=== PATIENT | female | born 1960 | race Two or more races ===

== ENCOUNTER 2020-08-18 20:19 | Emergency (ER) | payer OTHER ==
[~2020-08-18] VITALS: Ht 157.5 cm; Wt 84.8 kg
[2020-08-18 20:35] VITALS: BP 130/63
--- NOTE | 2020-08-18 20:45 | NUR ---
SEEN AND EXAMINED BY TIA WITH ORDERS AND CARRIED OUT.
[2020-08-18] MEDS ORDERED: ACETAMINOPHEN 325 MG TAB PO ONE (20:50)
--- NOTE | 2020-08-18 21:10 | NUR ---
MEDICATED PER [facility] ORDER , TOLERATED WELL.
--- NOTE | 2020-08-18 21:10 | NUR ---
SWAB DONE FOR INFLUENZA, AND NOVEL SENT TO LAB
[2020-08-18] MEDS ORDERED: NACL 0.9% 1,000 ML IV ONE (22:10)
[2020-08-18 22:31] LABS: HEMATOCRIT 38.3 % (36-48); HEMOGLOBIN 12.3 g/dL (12.0-16.0); MEAN CORPUSCULAR HEMOGLOBIN 29 pg (27-31); MEAN CORPUSCULAR HGB CONC 32 g/dL (33-37); MEAN CORPUSCULAR VOLUME 90.7 fL (80-94); PLATELET COUNT (AUTO) 244 K/uL (140-450); RED BLOOD CELL COUNT(AUTO) 4.23 MIL/uL (4.20-5.40); RED CELL DISTRIBUTION WIDTH 12.5 % (11.6-13.7); WHITE BLOOD COUNT (AUTO) 15.3 K/uL (4.8-10.8)
[2020-08-18 22:54] LABS: ALBUMIN 3.2 g/dL (3.4-5.0); ANION GAP 14.1 (8-16); CARBON DIOXIDE 27.5 mmol/L (21-32); CREATININE 0.6 mg/dL (0.6-1.3); POTASSIUM 3.6 mmol/L (3.5-5.1); TOTAL BILIRUBIN 0.9 mg/dL (0.0-1.0)
[2020-08-18 23:34] VITALS: BP 125/65
--- NOTE | 2020-08-18 23:40 | NUR ---
urine sample collected.
[2020-08-18] MEDS ORDERED: CEFEPIME 1,000 MG VIAL ONE (23:44)
[2020-08-18] MEDS ORDERED: CEFEPIME 1,000 MG in DEXTROSE 5% 50 ML IV ONE (23:45)
[2020-08-19 02:04] LABS: APPEARANCE,URINE CLEAR (CLEAR); BILIRUBIN,URINE 1+ (NEGATIVE); BLOOD, URINE 3+ (NEGATIVE); COLOR,URINE YELLOW (YELLOW); LEUKOCYTE ESTERASE ,URINE 3+ (NEGATIVE); NITRITE, URINE NEGATIVE (NEGATIVE); UGLUCOSE NEGATIVE (NEGATIVE)
[2020-08-19 02:47] LABS: WBC,URINE 80-100 /HPF (0-5)
[2020-08-19 02:48] LABS: RBC,URINE 11-20 (MOD) /HPF (0-5)
--- NOTE | 2020-08-19 03:12 | NUR ---
Patient discharged with v/s stable. Written and verbal after care instructions given and explained. Patient alert, oriented and verbalized understanding of instructions. Ambulatory with steady gait. All questions addressed prior to discharge. ID band removed. Patient advised to follow up with PMD. Rx of keflex and motrin given. Patient educated on indication of medication including possible reaction and side effects. Opportunity to ask questions provided and answered.
[2020-08-19 03:40] LABS: EOSINOPHILS % (MANUAL) 1 % (0-4); LYMPHOCYTES % (MANUAL) 12 % (20-46); MONOCYTES % (MANUAL) 4 % (5-12)
== END 2020-08-19 03:12 | disposition home or self-care (01) ==
LOC: MED 20:19
DX: R50.9 Fever, unspecified (principal); D72.829 Elevated white blood cell count, unspecified; R35.0 Frequency of micturition; Z90.711 Acquired absence of uterus with remaining cervical stump; Z20.828 Contact with and (suspected) exposure to other viral communicable diseases
CPT/HCPCS: 36415; 71045; 80053; 81001; 83605; 85025; 87040; 87086; 87804; 96365; 99284; J0692; J7030; U0003